=== PATIENT | female | born 1960 | race Caucasian/White ===

== ENCOUNTER 2016-07-14 14:25 | Emergency (ER) | payer MEDICAID ==
[~2016-07-14] VITALS: Ht 162.6 cm; Wt 62.0 kg
[~2016-07-14 14:25] MED LIST: ALPR0.5T3 PO; ASPI325T PO; METO50TA PO; OMEP20TA39 PO; PLAV75TA PO; PROZ40CA PO; ROBA750T3 PO; ZYRT10TA12 PO
[2016-07-14 14:28] VITALS: BP 128/86; PULSE 95; RESP 14; TEMP 98.2; O2SAT 100
[2016-07-14] MEDS ORDERED: PROZ40CA PO (15:09)
[2016-07-14] MEDS ORDERED: ASPI325T PO (15:09)
[2016-07-14] MEDS ORDERED: ALPR0.5T3 PO (15:09)
[2016-07-14] MEDS ORDERED: ROBA750T PO (15:09)
[2016-07-14] MEDS ORDERED: PLAV75TA29 PO (15:09)
[2016-07-14] MEDS ORDERED: PANT20 PO (15:09)
--- NOTE | 2016-07-14 15:57 | PD ---
HPI Chief Complaint: foot pain Time Seen by Provider: 14:52 Travel History International Travel<30 days: No Contact w/Intl Traveler<30days: No Traveled to known affect area: No History of Present Illness HPI 55-year-old female presents with right foot pain and discoloration to the bottom of her foot with associated pain to her right ring finger and discoloration to the tip. She denies any trauma. She notes history of stent to her right leg before. She states she thinks it was January of last year but she's not sure. She states Dr. marks is her vascular surgeon. Quality pain is sharp. Severity is moderate. Pain is worse with movement. She denies other modifying factors. She states she still smokes. PFSH Past Medical History Hx Anticoagulant Therapy: Yes Autoimmune Disease: Yes (Psoriasis) Blood Disorders: No Anxiety: Yes Depression: Yes ( ) Heart Rhythm Problems: Yes (PATIENT STATES SHE HAD A HEART ATTACK SEPTEMBER 2006) Cancer: Yes (Colon) Cardiac Catheterization: Yes Cardiovascular Problems: Yes (PULMONARY ARTERY DISEASE) High Cholesterol: Yes Chemotherapy: No Chest Pain: Yes Cerebrovascular Accident: Yes Diabetes: Yes Diminished Hearing: No Endocrine: Yes GERD: Yes Genitourinary: No Hiatal Hernia: Yes Hypertension: Yes Immune Disorder: No Implanted Vascular Access Dvce: Yes Musculoskeletal: Yes Neurologic: Yes Psychiatric: Yes (ANXIETY DEPRESSION) Reproductive: No Respiratory: Yes Immunizations Current: Yes Migraines: Yes Myocardial Infarction: Yes (09/2006) Radiation Therapy: No Sleep Apnea: No Thyroid Disease: Yes PNEUMOCCOCAL Vaccine (Year): 3 Menopausal: Yes : 4 Para: 2 Past Surgical History Abdominal Surgery: Yes (Colectomy, bowel obstructions) Appendectomy: Yes Body Medical Devices: stent to leg Cholecystectomy: Yes Coronary Stent: Yes (X1 ) Genitourinary Surgery: No Hysterectomy: No Joint Replacement: Yes (neck) Social History Alcohol Use: Yes (Rarely) Tobacco Use: Yes (1/2 PPD) Substance Use: No (DENIES ) Allergies-Medications (Allergen,Severity, Reaction): Coded Allergies: Iodinated Contrast Media (Verified Allergy, Severe, SOB, HIVES, 07/14/16) Iodine (Verified Allergy, Severe, SOB, HIVES, 07/14/16) Iopamidol (ISOVUE) (Verified Allergy, Severe, PT ALLERGIC TO IODINE, ) Sulfa (Verified Allergy, Severe, SOB, HIVES, 07/14/16) Toradol (Verified Allergy, Severe, SOB, HIVES, 07/14/16) Codeine (Verified Allergy, Intermediate, HIVES, VOMITING, 07/14/16) Latex (Verified Adverse Reaction, Severe, RED ALL OVER, 07/14/16) *MDRO Multi-Drug Resistant Organism (Verified Adverse Reaction, Unknown, ) 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 SKIN: Purple discoloration noted to bottom of right foot with decreased cap refill, purple discoloration and decreased cap refill to palmar aspect of right ring finger distal tip HEAD: Normocephalic and atraumatic. EYES: No injection or drainage. ENT: No nasal drainage noted. NECK: Supple, trachea midline. CARDIOVASCULAR: Regular rate and rhythm RESPIRATORY: No increased effort. No accessory muscle use. EXTREMITIES: No edema. Palpable bilateral dorsalis pedis and posterior tibialis pulses that were confirmed with Doppler, palpable bilateral radial pulses, no specific joint pain pain over area of discoloration without cellulitic changes or crepitus NEUROLOGICAL: Awake and alert. Motor and sensory grossly within normal limits. Normal speech. Data Data Last Documented VS Vital Signs Date Time Temp Pulse Resp B/P Pulse Ox O2 Delivery O2 Flow Rate FiO2 07/14/16 14:28 98.2 95 14 128/86 100 Room Air Orders Ecg Monitoring (07/14/16 14:59) Oximetry (07/14/16 14:59) MDM Medical Decision Making Medical Screen Exam Complete: Yes Emergency Medical Condition: Yes Medical Record Reviewed: Yes (past history confirmed) Differential Diagnosis Buerger's disease, peripheral artery disease, embolic phenomenon... Narrative Course Will discuss with her vascular surgeon Patient updated and agrees to outpatient follow-up, questions answered Physician Communication Physician Communication Dr. cali states no testing needed can follow in office Diagnosis Primary Impression: Cold right foot Additional Impression: Finger pain, right Referrals: Pascale Marks MD call for appointment Patient Instructions: General Instructions Additional Instructions: stop smoking, return as needed Med/Other Pt SpecificInfo: No Change to Meds Disposition: 01 DISCHARGE HOME Condition: Stable Meg Estrada MD Jul 14, 2016 15:56
== END 2016-07-14 16:28 | disposition home or self-care (01) ==
LOC: NEPE 14:25
DX: M79.671 Pain in right foot (principal); M79.644 Pain in right finger(s); E78.00 Pure hypercholesterolemia, unspecified; E11.9 Type 2 diabetes mellitus without complications; I10 Essential (primary) hypertension; F17.210 Nicotine dependence, cigarettes, uncomplicated; Z79.01 Long term (current) use of anticoagulants
CPT/HCPCS: 99283